=== PATIENT | male | born 1935 | race Caucasian/White ===

== ENCOUNTER → 2016-09-24 | Outpatient (CLI) | payer MEDICARE ==
[~2016-09-24] MED LIST: /LINE60TA PO; /TAMS4CA PO; ACET50TA PO; AVOD0.5C PO; DAPT50VL IV; FERR324T2 PO; HEPA100SY IVFLUSH; MULTTAB4 PO; PERC7.5T12 PO; SALI0.9I2 IJ; SLF IV; TOPR25TA PO; TYLE325T5 PO; ULTR50TA PO; VITA500C24 PO; WARF5VL PO
--- NOTE | 2016-09-26 15:04 | RADONC ---
RADIATION ONCOLOGY FOLLOWUP NOTE: DATE: 09/24/2016 CHART NUMBER: [id number] DIAGNOSIS: Prostate cancer. STAGE: IV ECOG PERFORMANCE STATUS: 0 Mr. Tolliver is a very pleasant 81-year-old white male with the diagnosis of metastatic adenocarcinoma of prostate who is presenting to us today for routine followup visit almost 4 years post completion of palliative radiation therapy to his right hip and femur. He is almost 6 years post completion of palliative radiation therapy to his thoracic spine. The patient presents today reporting that he is doing quite well with no complaints at this time related to his radiation therapy or disease. He has no hip, spine or other bone pain. REVIEW OF SYSTEMS: The patient's review of systems is noncontributory. He denies nausea, vomiting, fevers, chills, night sweats, diplopia, headaches, anxiety or depression, anorexia, weight loss, visual disturbances, chest pain, urinary or bowel difficulties, bone pain, or neurological problems. PHYSICAL EXAMINATION: The patient is a well-developed, well-nourished male in no acute distress. HEENT exam is normocephalic, atraumatic. Extraocular movements are intact. There is no palpable cervical, supraclavicular, infraclavicular, axillary, or inguinal lymphadenopathy present. Lungs are clear to auscultation and percussion. Heart has a regular rate and rhythm. Abdomen is benign with no hepatosplenomegaly, masses, or tenderness. Skeletal examination reveals no tenderness to pressure or percussion of the bony skeleton. Extremities reveal no clubbing, cyanosis, or edema. Neurologic exam is grossly intact, as is the remainder of the physical examination. ASSESSMENT: The patient is clinically stable at this time and will be seen by us again in 1 year for further followup. He will also continue to be followed by his other physicians as well. cc: MD Keith Hernandez MD Alejandro Rodriguez, MD Anna Shapiro, MD
== END ==
LOC: M ONCR 14:39
PROVIDERS: ATTEND Radiology Radiation Oncology
DX: C61 Malignant neoplasm of prostate (principal)

== ENCOUNTER 2016-11-14 14:23 | Emergency (ER) | payer MEDICARE ==
[~2016-11-14] VITALS: Ht 162.6 cm; Wt 68.1 kg
[2016-11-14 14:56] LABS: BASO % 0.2 % (0.0-1.0); EOS # 0.1 K/mm3 (0.0-0.50); EOS % 2.1 % (0.0-3.0); LARGE UNSTAINED CELL # 0.1 K/mm3 (0.0-0.4); LARGE UNSTAINED CELL % 1.8 % (0.0-4.0); LYMPH % 14.8 % (24.0-44.0); MEAN CORPUSCULAR HEMOGLOBIN 31.8 pg (27.0-33.0); MEAN CORPUSCULAR HGB CONC 33.3 g/dl (32.0-36.5); MEAN CORPUSCULAR VOLUME 95.7 fl (80.0-96.0); MONO # 0.4 K/mm3 (0.0-0.8); MONO % 7.1 % (0.0-5.0); NEUTROPHILS # 4.5 K/mm3 (1.8-7.7); NEUTROPHILS % 73.9 % (36.0-66.0); PLATELET COUNT, AUTOMATED 256 k/mm3 (150-450); RED CELL DISTRIBUTION WIDTH 13.8 % (11.5-14.5)
[2016-11-14 15:03] LABS: INR 1.1
[2016-11-14] MEDS ORDERED: FUROSEMIDE 40 MG/4 ML VIAL (J1940) IV ONE (15:15)
[2016-11-14 15:23] LABS: ANION GAP 9 MEQ/L (8-16); BLOOD UREA NITROGEN 34 MG/DL (7-18); CALCIUM LEVEL 8.3 MG/DL (8.8-10.2); CARBON DIOXIDE LEVEL 26 MEQ/L (21-32); CHLORIDE LEVEL 112 MEQ/L (98-107); CREATININE FOR GFR 1.01 MG/DL (0.70-1.30); GLOMERULAR FILTRATION RATE > 60.0 (>35); GLUCOSE, FASTING 111 MG/DL (83-110); POTASSIUM SERUM 4.1 MEQ/L (3.5-5.1); SODIUM LEVEL 147 MEQ/L (136-145)
--- NOTE | 2016-11-14 15:46 | REP ---
Chest x-ray: Two views. History: Chest pain. Comparison study: April 14, 2013. Findings: EKG monitoring electrodes overlie the chest. There is mild to moderate cardiomegaly. Bilateral pleural effusions are seen. Pulmonary vascular cephalized and somewhat congested. Fissural thickening is seen. Impression: CHF pattern with pulmonary vascular congestion, cardiomegaly, and bilateral effusions. Signed by Satya Perla MD 11/14/2016 04:59 P
[2016-11-14 17:48] VITALS: BP 111/86
--- NOTE | 2016-11-16 08:16 | ECGEPIP ---
Stationary ECG Study [facility] - ED Test Date: 2016-11-14 Pat Name: RAYMOND DAWOSN Department: Room: - Gender: M [employer] Worker: carlos manuel : 1935 Requested By: LONI Casillas Order Number: [id number] Reading MD: Jelly Razo Measurements Intervals [place] Rate: 101 P: 17 MS: 251 QRS: -78 QRSD: 143 T: 73 QT: 398 QTc: 518 Interpretive Statements SINUS TACHYCARDIA WITH FIRST DEGREE AV BLOCK WITH OCCASIONAL VENTRICULAR PREMATURE COMPLEXES RIGHT BUNDLE BRANCH BLOCK LEFT ANTERIOR FASCICULAR BLOCK DECREASED RATE 12/26/11 Electronically Signed On 11-16-2016 8:16:11 EDT by Jelly Razo
== END 2016-11-14 17:50 | disposition short-term general hospital (02) ==
LOC: M ED 14:23
DX: I35.0 Nonrheumatic aortic (valve) stenosis (principal); I50.9 Heart failure, unspecified; R94.31 Abnormal electrocardiogram [ECG] [EKG]; R60.0 Localized edema; M19.90 Unspecified osteoarthritis, unspecified site; Z85.51 Personal history of malignant neoplasm of bladder; Z85.46 Personal history of malignant neoplasm of prostate; Z87.891 Personal history of nicotine dependence; Z79.899 Other long term (current) drug therapy
CPT/HCPCS: 71020; 80048; 82550; 82553; 83880; 84484; 85025; 85610; 85730; 93005; 93041; 94760; 96374; 99285; J1940

== ENCOUNTER → 2017-10-14 | Outpatient (CLI) | payer MEDICARE | LOC: M ONCR 10:43 | DX: Z08 Encounter for follow-up examination after completed treatment for malignant neoplasm (principal); Z85.46 Personal history of malignant neoplasm of prostate; Z85.830 Personal history of malignant neoplasm of bone | CPT/HCPCS: G0463 ==

== ENCOUNTER → 2018-09-08 | Outpatient (CLI) | payer MEDICARE ==
[~2018-09-08] MED LIST changes: -/LINE60TA PO; -/TAMS4CA PO; -ACET50TA PO; +FLOM0.4C39 PO; +MAPA500T17 PO; +METO-1 PO; -TOPR25TA PO; +ZYVO100T PO
--- NOTE | 2018-09-10 06:55 | RADONC ---
RADIATION ONCOLOGY FOLLOW UP NOTE DATE: 09/08/2018 CHART # [id number] DIAGNOSIS: Prostate cancer. STAGE: IV. ECOG PERFORMANCE STATUS: 0. FOLLOWUP NOTE: It was my pleasure once again to see Mr. Tolliver who is a truly delightful 83-year-old white male with the diagnosis of metastatic adenocarcinoma of the prostate who is presenting to us today for routine followup visit 6 years post completion of palliative radiation therapy to his right hip and femur. It is now also 8 years post completion of palliative radiation therapy to his thoracic spine. The patient presents today once again reporting that he is having no problems. He has no new areas of pain or discomfort. His energy levels are good. He continues to work daily. He is quite active and having no symptoms or any hints whatsoever of having metastatic disease. REVIEW OF SYSTEMS: The patient's review of systems is noncontributory. Denies nausea, vomiting, fevers, chills, night sweats, diplopia, headaches, anxiety or depression, anorexia, weight loss, visual disturbances, chest pain, urinary or bowel difficulties, bone pain, or neurological problems. PHYSICAL EXAMINATION: The patient is a well-developed, well-nourished male in no acute distress. HEENT exam is normocephalic, atraumatic. Extraocular movements are intact. There is no palpable cervical, supraclavicular, infraclavicular, axillary, or inguinal lymphadenopathy present. Lungs are clear to auscultation and percussion. Heart has a regular rate and rhythm. Abdomen is benign with no hepatosplenomegaly, masses, or tenderness. Rectal examination reveals a normal anal sphincter tone. His prostate is smooth with no evidence of nodularity. Skeletal examination reveals no tenderness to pressure or percussion of the bony skeleton. Extremities reveal no clubbing, cyanosis, or edema. Neurologic exam is grossly intact, as is the remainder of the physical examination. ASSESSMENT: The patient is clinically stable at this time. He does have multiple other medical issues for which he is doing remarkably well indeed. Overall, I must say that this patient is doing spectacularly phenomenally well. I have set him up for routine followup in my office in 1 year. He has a copy of my cell phone number as well as my office number and I let the patient know that I am available to him at anytime if I could be of any assistance whatsoever or provide him any information. He is aware of what symptoms to look for to indicate when he should seek assistance as well. In the meantime, he will also continue his management with his other physicians. cc: MD Bebeto Parson MD Vojtech Slezka, MD
== END ==
LOC: M ONCR 09:20
PROVIDERS: ATTEND Radiology Radiation Oncology
DX: Z85.46 Personal history of malignant neoplasm of prostate (principal); Z92.3 Personal history of irradiation

== ENCOUNTER → 2019-09-07 | Outpatient (CLI) | payer MEDICARE ==
--- NOTE | 2019-09-08 16:14 | RADONC ---
RADIATION ONCOLOGY FOLLOWUP NOTE DATE: 09/07/2019 This is a telemedicine visit. The patient was informed of the risks including security breech, technological failure, inability to perform a comprehensive physical exam which could delay or prevent an accurate diagnosis, and potential complications from treatment decisions rendered over a telemedicine platform. The patient understands and consented to the use of telehealth services phone only. CHART NUMBER: [id number]. DIAGNOSIS: Prostate cancer. STAGE: IV. ECOG PERFORMANCE STATUS 0 FOLLOWUP NOTE: Mr. Tolliver is a remarkable 84-year-old white male with the diagnosis of metastatic adenocarcinoma of the prostate who is presenting to me once again today for routine followup visit 7 years post completion of palliative radiation therapy to his right hip and femur. He is now 9 years post completion of palliative radiation therapy to his thoracic spine. Once again, the patient is working diligently. He is doing exceedingly well. He reports no problems or significant pain. His energy levels are good. He reports that his works takes him sometimes 400 miles away on a daily basis. He feels remarkably well. REVIEW OF SYSTEMS: The patient's review of systems is basically noncontributory. Denies nausea, vomiting, fevers, chills, night sweats, diplopia, headaches, anxiety or depression, anorexia, weight loss, visual disturbances, chest pain, urinary or bowel difficulties, bone pain, or neurological problems. PHYSICAL EXAMINATION: Physical exam was deferred as per COVID-19 precautions. ASSESSMENT: Once again, the patient is stable at this point. I have explained to him that I will be retiring and replaced by a new physician Dr. Nelson. I have tentatively set him up for a 1-year followup visit with Dr. Nelson so that he remains in the system. In addition, I have given him my cell phone number and he has the number here. He has been made aware once again should he develop any symptoms such as increasing bone pain he can contact me or the center and be scheduled immediately for evaluation scanning and subsequent radiation if indicated. In the meantime though, the patient is doing amazingly well without intervention and Dr. Nelson will continue to follow in the future.
== END ==
LOC: M ONCR 08:53
PROVIDERS: ATTEND Radiology Radiation Oncology
DX: C61 Malignant neoplasm of prostate (principal)

== ENCOUNTER → 2020-09-19 | Outpatient (CLI) | payer MEDICARE ==
--- NOTE | 2020-09-19 11:23 | RADONC ---
Radiation Oncology Hx/FUP Radiation Oncology Hx/FUP Date of Service: Sep 19, 2020 Pt Identifier Sukumar Tolliver is a 85 year old male seen for a followup visit today at the department of radiation oncology for a history of localized prostate cancer. He completed initial therapy for prostate cancer in 2007. He received 77.4 Gy in 43 fractions from 04/29/07-06/28/2007. He later was though to have progressed in bone in 2010 and received 35 Gy in 14 fractions to the T-L spine 02/24/11-03/13/11. He then by report developed another lesion in the right femur in 2012 and received 25 Gy in 10 fractions from 11/18/12-12/02/12. Imaging of both these bony sites contemporaneous with treatment had no evidence of cancer. The was no biopsies done to confirm metastases. The right hip was later replaced and pathology revealed no cancer, instead degenerative arthritic changes. 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 Rios @ [facility] in 2012, received HBO treatment for the RT cystitis also in [place], it later resolved. He has remained without evidence of recurrent prostate cancer since then with a persistent low PSA. Diagnosis/Treatment History Oncologic History As above Most recent imagin07/06/15 MRI L spine Negative for metastatic lesions Positive for disc bulge L4-5 L5-S1 Recent data: 09/12/20 PSA 0.77 ng/ml Interval History Feels well. Has back pain from arthritis. 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 No additional sites of bone pain. No LISA, or cough. He has normal bowel and bladder habits without bleeding or LUTs. His appetite and weight are stable. Takes flomax, no problems with the medication. Current Therapy Surveillance Stage Prostate cancer localized, no evidence of confirmed metastatic disease Social History: Non-smoker Non-drinker Allergies / Meds Allergies: Coded Allergies: MS - No Known Drug Allergy (Verified Allergy, 06/22/12) Home Meds Reported Medications Acetaminophen (TYLENOL) 500 Mg Tab, 650 MG PO Q4HP PRN for TEMP, TAB 04/28/13 Tamsulosin HCl (FLOMAX) 0.4 Mg Cap, 0.4 MG PO DAILY 12/24/11 Multivitamin (Multivitamins) 1 Each Tab, 1 TAB PO DAILY 12/24/11 Review of Systems Review of Systems Constitutional: Denies: Fatigue, Weight Loss Eyes: Reports: Vision change (Blind OS); Denies: Pain HEENT: Denies: Head Aches Skin: Denies: Rash Pulmonary: Denies: Dyspnea, Cough Cardiovascular: Denies: Chest Pain, Palpitations Gastrointestinal: Denies: Abdominal Pain, Diarrhea, Hematochezia Genitourinary: Denies: Dysuria, Frequency, Incontinence, Hematuria Musculoskeletal: Reports: Back pain; Denies: Neck pain, Leg pain Neurological: Denies: Weakness, Numbness Psych: Reports: Mood Normal Physical Examination Vital Signs Wt 147 lbs T 97 P 66 RR 18 BP 144/74 O2 90% Pain 0 Fatigue 0 General Exam: Positive: Alert, Cooperative, No Acute Distress Eye Exam: Positive: PERRLA, EOMI ENT EXAM: Positive: Atraumatic Neck Exam: Positive: Supple Chest Exam: Positive: Clear to auscultation, Normal air movement Heart Exam: Positive: Rate Normal Abdomen Exam: Positive: Normal bowel sounds, Soft Male Exam: Positive: Normal Prostate Extremity Exam: Negative: Edema Skin Exam: Positive: Nl turgor and temperature Neuro Exam: Positive: Normal Gait, Normal Speech, Cranial Nerves 3-12 NL Psych Exam: Positive: Mental status NL Diagnostic and Laboratory Diagnostic Review Radiologic images, relevant labs and pathology reports were personally reviewed and discussed with Mr. Tolliver. Assessment and Plan Impression Assessment Mr. Tolliver is a 85 year old male with a history of localized prostate cancer. He completed initial therapy for prostate cancer in 2007. He received 77.4 Gy in 43 fractions from 04/29/07-06/28/2007. He later was though to have progressed in bone in 2010 and received 35 Gy in 14 fractions to the T-L spine 02/24/11- 03/13/11. He then by report developed another lesion in the right femur in 2012 and received 25 Gy in 10 fractions from 11/18/12-12/02/12. Imaging of both these bony sites contemporaneous with treatment had no evidence of cancer. The was no biopsies done to confirm metastases. The right hip was later replaced and pathology revealed no cancer, instead degenerative arthritic changes. 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 Rios @ [facility] in 2012, received HBO treatment for the RT cystitis also in [place], it later resolved. He has remained without evidence of recurrent prostate cancer since then with a persistent low PSA. He is doing well without evidence of biochemical recurrence. I explained that he is unlikely to experience remission at this juncture, now 14 years removed from primary treatment. He has had late RT cystitis which is currently in remission as well. We can continue annual follow up with PSA. Performance Status ECOG 1 Plan Follow up in 12 months with PSA Mr. Tolliver was encouraged to call with questions or concerns in the interim period. Billing Statement Total time of [34] minutes was spent preparing for the visit [3], obtaining HPI [10], examining the patient [1], reviewing diagnostic tests [5], discussing management options [4], coordinating care [1], and writing this note [10]. SIERRA MARIE MD Sep 19, 2020 11:22
== END ==
LOC: M ONCR 09:27
PROVIDERS: ATTEND General Practice
DX: C61 Malignant neoplasm of prostate (principal)

== ENCOUNTER → 2021-09-18 | Outpatient (CLI) | payer MEDICARE | LOC: M ONCR 09:40 | PROVIDERS: ATTEND General Practice | DX: Z08 Encounter for follow-up examination after completed treatment for malignant neoplasm (principal); Z85.46 Personal history of malignant neoplasm of prostate; Z92.3 Personal history of irradiation ==

== ENCOUNTER 2022-09-06 21:57 | Observation (INO) | payer MEDICARE ==
[~2022-09-06] VITALS: Ht 162.6 cm; Wt 65.9 kg
[2022-09-06 23:15] LABS: BASO % 0.5 % (0.0-1.0); EOS # 0.3 10^3/uL (0.0-0.5); EOS % 4.2 % (0.0-3.0); HEMATOCRIT 36.1 % (42.0-52.0); HEMOGLOBIN 11.9 g/dl (13.5-17.5); LYMPH # 1.5 10^3/uL (1.5-5.0); LYMPH % 24.6 % (24.0-44.0); MEAN CORPUSCULAR HEMOGLOBIN 31.3 pg (27.0-33.0); MONO # 0.7 10^3/uL (0.0-0.8); MONO % 10.7 % (2.0-8.0); NEUTROPHILS # 3.7 10^3/uL (1.5-8.5); NEUTROPHILS % 59.7 % (36.0-66.0); PLATELET COUNT, AUTOMATED 195 10^3/uL (150-450); WHITE BLOOD COUNT 6.3 10^3/uL (4.0-10.0)
[2022-09-06 23:38] LABS: LIPASE 34 U/L (12-53)
[2022-09-06 23:40] LABS: ALBUMIN 4.1 G/DL (3.2-5.2); ALKALINE PHOSPHATASE 76 U/L (46-116); ALT/SGPT 16 U/L (7.0-40); AST/SGOT 16 U/L (<34); BILIRUBIN,DIRECT 0.4 MG/DL (<0.4); BILIRUBIN,TOTAL 1.4 MG/DL (0.3-1.2); BLOOD UREA NITROGEN 24 MG/DL (9-23); CALCIUM LEVEL 9.7 MG/DL (8.3-10.6); CARBON DIOXIDE LEVEL 31 MMOL/L (20-31); CHLORIDE LEVEL 102 MMOL/L (98-107); CREATININE FOR GFR 0.93 MG/DL (0.70-1.30); GLOMERULAR FILTRATION RATE > 60.0 (>35); GLUCOSE, FASTING 130 MG/DL (74-106); POTASSIUM SERUM 4.6 MMOL/L (3.5-5.1); SODIUM LEVEL 139 MMOL/L (136-145); TOTAL PROTEIN 6.7 G/DL (5.7-8.2)
[2022-09-07] MEDS ORDERED: LIDOCAINE 2% 5ML JELLY UROJET As Ordered ONE (03:18)
[2022-09-07] MEDS ORDERED: LIDOCAINE 2% 5ML JELLY UROJET TOP ONE (03:20)
[2022-09-07 04:32] LABS: INR 0.95; PARTIAL THROMBOPLASTIN TIME 30.1 SECONDS (24.8-34.2); PROTHROMBIN TIME 12.9 SECONDS (12.5-14.5)
[2022-09-07] MEDS ORDERED: CARV25TA PO (06:19)
[2022-09-07] MEDS ORDERED: CIPR500T39 PO (06:19)
[2022-09-07] MEDS ORDERED: LISI2.5T9 PO (06:19)
[2022-09-07] MEDS ORDERED: THERTAB52 PO (06:19)
[2022-09-07] MEDS ORDERED: TAMS1CAP17 PO (06:19)
[2022-09-07] MEDS ORDERED: HOME MED LIST COMPLETE! XX SCH (06:20)
[2022-09-07 07:00] LABS: RSV AMPLIFICATION NEGATIVE (NEGATIVE)
[2022-09-07 08:22] LABS: HEMATOCRIT 34.8 % (42.0-52.0); HEMOGLOBIN 11.8 g/dl (13.5-17.5); MEAN CORPUSCULAR HEMOGLOBIN 31.8 pg (27.0-33.0); MEAN CORPUSCULAR HGB CONC 33.9 g/dl (32.0-36.5); MEAN CORPUSCULAR VOLUME 93.8 fl (80.0-96.0); PLATELET COUNT, AUTOMATED 184 10^3/uL (150-450); RED BLOOD COUNT 3.71 10^6/uL (4.30-6.10); WHITE BLOOD COUNT 7.4 10^3/uL (4.0-10.0)
[2022-09-07 08:54] LABS: BLOOD UREA NITROGEN 21 MG/DL (9-23); CALCIUM LEVEL 9.4 MG/DL (8.3-10.6); CARBON DIOXIDE LEVEL 30 MMOL/L (20-31); CHLORIDE LEVEL 103 MMOL/L (98-107); CREATININE FOR GFR 0.81 MG/DL (0.70-1.30); GLOMERULAR FILTRATION RATE > 60.0 (>35); GLUCOSE, FASTING 110 MG/DL (74-106); POTASSIUM SERUM 4.1 MMOL/L (3.5-5.1); SODIUM LEVEL 141 MMOL/L (136-145)
[2022-09-07 13:55] VITALS: BP 166/72; TEMP 98.2; O2SAT 92
== END 2022-09-07 14:45 | disposition home or self-care (01) ==
LOC: M ED 21:57 → M ED INP 21:58 → ENRESERV 09-07 13:30
PROVIDERS: ADMIT Internal Medicine; ATTEND Internal Medicine
DX: R31.9 Hematuria, unspecified (principal); R33.9 Retention of urine, unspecified; Z85.46 Personal history of malignant neoplasm of prostate; Z92.3 Personal history of irradiation; Z85.51 Personal history of malignant neoplasm of bladder; H33.052 Total retinal detachment, left eye; H54.40 Blindness, one eye, unspecified eye; I38 Endocarditis, valve unspecified; G47.33 Obstructive sleep apnea (adult) (pediatric); E78.5 Hyperlipidemia, unspecified; Z95.2 Presence of prosthetic heart valve; Z79.899 Other long term (current) drug therapy; Z79.2 Long term (current) use of antibiotics; Z95.0 Presence of cardiac pacemaker; Z87.891 Personal history of nicotine dependence
CPT/HCPCS: 51702; 80048; 80076; 81000; 81015; 83690; 85025; 85027; 85610; 85730; 87086; 87631; 93005; 97161; 99285; G0378

== ENCOUNTER → 2022-09-18 | Outpatient (CLI) | payer MEDICARE ==
[~2022-09-18] MED LIST changes: +CARV25TA PO; +CIPR500T39 PO; +LISI2.5T9 PO; +TAMS1CAP17 PO; +THERTAB52 PO
== END ==
LOC: M ONCR 10:21
PROVIDERS: ATTEND General Practice
DX: C61 Malignant neoplasm of prostate (principal); Z85.830 Personal history of malignant neoplasm of bone; Z71.2 Person consulting for explanation of examination or test findings; Z79.899 Other long term (current) drug therapy; Z92.3 Personal history of irradiation; Z96.0 Presence of urogenital implants; Z96.641 Presence of right artificial hip joint

== ENCOUNTER → 2022-10-15 | Outpatient (REF) | payer MEDICARE | LOC: M SMT 10:03 | PROVIDERS: ATTEND Urology | DX: N35.919 Unspecified urethral stricture, male, unspecified site (principal); Z79.899 Other long term (current) drug therapy ==

== ENCOUNTER 2022-11-16 09:34 | Emergency (ER) | payer MEDICARE ==
[~2022-11-16] VITALS: Ht 162.6 cm; Wt 65.0 kg
[2022-11-16 09:34] VITALS: TEMP 96.3
[~2022-11-16 09:34] MED LIST changes: +SERT50TA29 PO
[2022-11-16 13:20] VITALS: BP 133/60; O2SAT 96
== END 2022-11-16 13:39 | disposition home or self-care (01) ==
LOC: M ED 09:34
DX: T83.098A Other mechanical complication of other urinary catheter, initial encounter (principal); I10 Essential (primary) hypertension; C61 Malignant neoplasm of prostate; G47.33 Obstructive sleep apnea (adult) (pediatric); M54.9 Dorsalgia, unspecified; Z95.0 Presence of cardiac pacemaker; Z87.891 Personal history of nicotine dependence; Z79.899 Other long term (current) drug therapy

== ENCOUNTER 2022-11-27 06:44 | Day surgery (SDC) | payer MEDICARE ==
[~2022-11-27] VITALS: Ht 162.6 cm; Wt 64.4 kg
[~2022-11-27 06:44] MED LIST changes: +ceFAZolin SOD 2 GM in IV 1 EA IV ONE
[2022-11-27] MEDS ORDERED: LR 1,000 ML IV SCH ×2 (07:05→09:10)
[2022-11-27] MEDS ORDERED: fentaNYL 100 MCG/2 ML INJECTION As Ordered ONE (08:47)
[2022-11-27] MEDS ORDERED: SUGAMMADEX SODIUM 500 MG/5 ML VIAL (BRIDION) As Ordered ONE (08:47)
[2022-11-27] MEDS ORDERED: propofoL 200 MG/20 ML VIAL As Ordered ONE (08:47)
[2022-11-27] MEDS ORDERED: ROCURONIUM BROMIDE 50MG/5ML VIAL As Ordered ONE (08:47)
[2022-11-27] MEDS ORDERED: LIDOCAINE 2% 100MG/5ML SDV (FOR ANES.) As Ordered ONE (08:47)
[2022-11-27] MEDS ORDERED: ONDANSETRON 4MG 2ML VIAL As Ordered ONE (08:47)
[2022-11-27] MEDS ORDERED: ACETAMINOPHEN 1000MG 100ML IV BAG As Ordered ONE (08:48)
[2022-11-27] MEDS ORDERED: ePHEDrine SULFATE 25 MG/5 ML(5MG/ML) SYRINGE As Ordered ONE (08:49)
[2022-11-27] MEDS ORDERED: MACR100C43 PO (09:09)
[2022-11-27] MEDS ORDERED: ONDANSETRON 4MG 2ML VIAL IV PRN (09:10)
[2022-11-27] MEDS ORDERED: HYDROMORPHONE HCL 0.5 MG/ 0.5 ML SYRINGE IV PRN (09:10)
[2022-11-27] MEDS ORDERED: fentaNYL 100 MCG/2 ML INJECTION IV PRN (09:10)
[2022-11-27] MEDS ORDERED: oxyCODONE 5MG TAB PO PRN (09:10)
[2022-11-27 10:55] VITALS: BP 141/70; TEMP 97.2; O2SAT 97
== END 2022-11-27 10:58 | disposition home or self-care (01) ==
LOC: M SDC 06:44
PROVIDERS: ATTEND Urology
DX: N35.919 Unspecified urethral stricture, male, unspecified site (principal); N30.90 Cystitis, unspecified without hematuria; R31.0 Gross hematuria; Z85.46 Personal history of malignant neoplasm of prostate; Z85.51 Personal history of malignant neoplasm of bladder; I25.10 Atherosclerotic heart disease of native coronary artery without angina pectoris; I05.9 Rheumatic mitral valve disease, unspecified; Z95.0 Presence of cardiac pacemaker; G47.30 Sleep apnea, unspecified; Z79.899 Other long term (current) drug therapy
CPT/HCPCS: 52276; J0690; J1100; J2405; J3010

== ENCOUNTER 2023-08-18 12:02 | Observation (INO) | payer MEDICARE ==
[~2023-08-18] VITALS: Ht 162.6 cm; Wt 65.0 kg
[~2023-08-18 12:02] MED LIST changes: +MACR100C43 PO; -ceFAZolin SOD 2 GM in IV 1 EA IV ONE
[2023-08-18 13:54] LABS: VENOUS HCO3 25.5 MMOL/L (23.0-27.0); VENOUS O2 SATURATION 78.4 % (60.0-80.0); VENOUS PARTIAL PRESSURE CO2 45.3 mmHg (38.0-50.0); VENOUS PARTIAL PRESSURE O2 45.7 mmHg (30.0-50.0); VENOUS PH 7.369 UNITS (7.330-7.430); VENOUS TOTAL CO2 26.9 MMOL/L (24.0-28.0)
[2023-08-18 14:00] LABS: BASO % 0.6 % (0.0-1.0); EOS # 0.2 10^3/uL (0.0-0.5); EOS % 4.1 % (0.0-3.0); HEMATOCRIT 34.9 % (42.0-52.0); HEMOGLOBIN 11.4 g/dl (13.5-17.5); LYMPH % 21.4 % (24.0-44.0); MEAN CORPUSCULAR HEMOGLOBIN 31.5 pg (27.0-33.0); MEAN CORPUSCULAR HGB CONC 32.7 g/dl (32.0-36.5); MEAN CORPUSCULAR VOLUME 96.4 fl (80.0-96.0); MONO # 0.5 10^3/uL (0.0-0.8); MONO % 11.7 % (2.0-8.0); NEUTROPHILS # 2.9 10^3/uL (1.5-8.5); PLATELET COUNT, AUTOMATED 173 10^3/uL (150-450); RED BLOOD COUNT 3.62 10^6/uL (4.30-6.10); WHITE BLOOD COUNT 4.6 10^3/uL (4.0-10.0)
[2023-08-18 14:22] LABS: CK-MB VALUE MASS 3.6 NG/ML (<3.6)
[2023-08-18 14:25] LABS: ALBUMIN 3.3 G/DL (3.2-5.2); BILIRUBIN,DIRECT 0.4 MG/DL (<0.4); BILIRUBIN,TOTAL 1.1 MG/DL (0.3-1.2); MB/CK RELATIVE INDEX 2.3 (< OR =4); THYROXINE (T4) 10.4 UG/DL (4.5-10.9); TOTAL PROTEIN 5.9 G/DL (5.7-8.2)
[2023-08-18 14:26] LABS: THYROID STIMULATING HORMONE 0.548 uIU/ML (0.55-4.78)
[2023-08-18 14:38] LABS: RSV AMPLIFICATION NEGATIVE (NEGATIVE)
[2023-08-18 15:04] LABS: INR 1.21; PROTHROMBIN TIME 14.9 SECONDS (12.5-14.5)
[2023-08-18 15:25] LABS: CK-MB VALUE MASS 3.2 NG/ML (<3.6)
[2023-08-18 15:31] LABS: MB/CK RELATIVE INDEX 2.03 (< OR =4)
[2023-08-18] MEDS ORDERED: ISOVUE-370 76% 100ML VIAL As Ordered ONE (17:27)
[2023-08-18] MEDS ORDERED: ASPI81CH33 PO (17:54)
[2023-08-18] MEDS ORDERED: HOME MED LIST COMPLETE! XX SCH (17:55)
[2023-08-18] MEDS: FUROSEMIDE 40MG/4ML VIAL IV SCH (18:40)
[2023-08-18] MEDS: CARVedilol 12.5 MG TAB PO SCH (22:06)
[2023-08-18 23:44] LABS: CK-MB VALUE MASS 2.9 NG/ML (<3.6)
[2023-08-18 23:45] LABS: MB/CK RELATIVE INDEX 2.04 (< OR =4)
[2023-08-19 01:35] VITALS: BP 128/63; TEMP 97; O2SAT 92
[2023-08-19 05:00] VITALS: BP 118/56; TEMP 97.5; O2SAT 92
[2023-08-19 06:43] LABS: HEMATOCRIT 37.9 % (42.0-52.0); HEMOGLOBIN 12.3 g/dl (13.5-17.5); MEAN CORPUSCULAR HEMOGLOBIN 31.1 pg (27.0-33.0); MEAN CORPUSCULAR HGB CONC 32.5 g/dl (32.0-36.5); MEAN CORPUSCULAR VOLUME 95.7 fl (80.0-96.0); PLATELET COUNT, AUTOMATED 190 10^3/uL (150-450); RED BLOOD COUNT 3.96 10^6/uL (4.30-6.10); WHITE BLOOD COUNT 5.6 10^3/uL (4.0-10.0)
[2023-08-19 07:07] LABS: CPK CREATINE PHOSPHOKINASE 138 U/L (46-171); MB/CK RELATIVE INDEX 2.17 (< OR =4)
[2023-08-19 07:08] LABS: BLOOD UREA NITROGEN 22 MG/DL (9-23); CALCIUM LEVEL 8.7 MG/DL (8.3-10.6); CARBON DIOXIDE LEVEL 32 MMOL/L (20-31); CHLORIDE LEVEL 105 MMOL/L (98-107); CREATININE FOR GFR 1.01 MG/DL (0.70-1.30); GLOMERULAR FILTRATION RATE > 60.0 (>35); GLUCOSE, FASTING 101 MG/DL (74-106); POTASSIUM SERUM 4.2 MMOL/L (3.5-5.1); SODIUM LEVEL 141 MMOL/L (136-145)
[2023-08-19 07:40] VITALS: BP 126/65; TEMP 97.4; O2SAT 94
[2023-08-19] MEDS: ENOXAPARIN 40MG/0.4ML SYRINGE (J1650 PER 10MG) SC SCH (08:23)
[2023-08-19 08:24] VITALS: BP 126/65
[2023-08-19] MEDS: LISINOPRIL *2.5 MG* TAB PO SCH (08:24)
[2023-08-19] MEDS: FUROSEMIDE 40MG/4ML VIAL IV SCH (08:24)
[2023-08-19] MEDS ORDERED: FURO20TA2 PO (10:28)
== END 2023-08-19 13:55 | disposition home or self-care (01) ==
LOC: M ED 12:02 → M ED INP 12:03 → M PCU 08-19 01:32
PROVIDERS: ADMIT Family Medicine; ATTEND Family Medicine
DX: I50.9 Heart failure, unspecified (principal); I35.1 Nonrheumatic aortic (valve) insufficiency; Z95.2 Presence of prosthetic heart valve; R06.09 Other forms of dyspnea; R79.89 Other specified abnormal findings of blood chemistry; I42.0 Dilated cardiomyopathy; J90 Pleural effusion, not elsewhere classified; R18.8 Other ascites; Z85.46 Personal history of malignant neoplasm of prostate; Z92.3 Personal history of irradiation; Z85.51 Personal history of malignant neoplasm of bladder; Z95.0 Presence of cardiac pacemaker; N30.40 Irradiation cystitis without hematuria; H33.002 Unspecified retinal detachment with retinal break, left eye; G47.33 Obstructive sleep apnea (adult) (pediatric); Z96.641 Presence of right artificial hip joint; Z80.3 Family history of malignant neoplasm of breast; Z82.49 Family history of ischemic heart disease and other diseases of the circulatory system; Z79.899 Other long term (current) drug therapy
CPT/HCPCS: 36415; 71045; 71275; 80047; 80048; 80076; 82550; 82553; 82803; 83605; 83880; 84436; 84443; 84484; 85025; 85027; 85610; 87040; 87631; 93005; 93041; 94760; 96372; 96374; 96376; 99285; G0378; J1650; J1940; Q9967

== ENCOUNTER → 2023-09-29 | Outpatient (CLI) | payer MEDICARE ==
[~2023-09-29] MED LIST changes: +ASPI81CH33 PO; +FURO20TA2 PO
== END ==
LOC: M ONCR 12:35
PROVIDERS: ATTEND General Practice
DX: Z08 Encounter for follow-up examination after completed treatment for malignant neoplasm (principal); I35.0 Nonrheumatic aortic (valve) stenosis; I50.9 Heart failure, unspecified; Z85.46 Personal history of malignant neoplasm of prostate; Z79.82 Long term (current) use of aspirin; Z79.899 Other long term (current) drug therapy; Z85.51 Personal history of malignant neoplasm of bladder; Z92.3 Personal history of irradiation; Z96.641 Presence of right artificial hip joint

== ENCOUNTER 2023-11-17 13:38 | Observation (INO) | payer MEDICARE ==
[~2023-11-17] VITALS: Ht 162.6 cm; Wt 65.1 kg
[2023-11-17] MEDS ORDERED: FURO40TA2 (13:50)
[2023-11-17] MEDS ORDERED: ADVIL (13:53)
[2023-11-17 14:29] LABS: BASO % 0.4 % (0.0-1.0); EOS # 0.3 10^3/uL (0.0-0.5); EOS % 5.5 % (0.0-3.0); HEMATOCRIT 32.8 % (42.0-52.0); HEMOGLOBIN 10.2 g/dl (13.5-17.5); LYMPH # 0.8 10^3/uL (1.5-5.0); LYMPH % 13.4 % (24.0-44.0); MEAN CORPUSCULAR HEMOGLOBIN 29.2 pg (27.0-33.0); MEAN CORPUSCULAR HGB CONC 31.1 g/dl (32.0-36.5); MONO # 0.5 10^3/uL (0.0-0.8); MONO % 8.4 % (2.0-8.0); NEUTROPHILS % 72.1 % (36.0-66.0); PLATELET COUNT, AUTOMATED 181 10^3/uL (150-450); RED BLOOD COUNT 3.49 10^6/uL (4.30-6.10); WHITE BLOOD COUNT 5.6 10^3/uL (4.0-10.0)
[2023-11-17 14:48] LABS: CK-MB VALUE MASS 1.6 NG/ML (<3.6); CPK CREATINE PHOSPHOKINASE 116 U/L (46-171); MB/CK RELATIVE INDEX 1.37 (< OR =4)
[2023-11-17 14:49] LABS: ALBUMIN 3.4 G/DL (3.2-5.2); ALKALINE PHOSPHATASE 91 U/L (46-116); ALT/SGPT 27 U/L (7.0-40); AST/SGOT 18 U/L (<34); BILIRUBIN,DIRECT 0.5 MG/DL (<0.4); BILIRUBIN,TOTAL 1.3 MG/DL (0.3-1.2); BLOOD UREA NITROGEN 48 MG/DL (9-23); CALCIUM LEVEL 8.9 MG/DL (8.3-10.6); CARBON DIOXIDE LEVEL 31 MMOL/L (20-31); CHLORIDE LEVEL 106 MMOL/L (98-107); CREATININE FOR GFR 1.01 MG/DL (0.70-1.30); GLOMERULAR FILTRATION RATE > 60.0 (>35); GLUCOSE, FASTING 204 MG/DL (74-106); POTASSIUM SERUM 4.2 MMOL/L (3.5-5.1); SODIUM LEVEL 144 MMOL/L (136-145); TOTAL PROTEIN 6.1 G/DL (5.7-8.2)
[2023-11-17] MEDS: FUROSEMIDE 40MG/4ML VIAL IV ONE (17:11)
[2023-11-17] MEDS: MIDODRINE 5 MG TAB PO ONE (17:45)
[2023-11-17] MEDS: ENOXAPARIN 30MG/0.3ML SYRINGE (J1650 PER 10MG) SC ONE (17:45)
[2023-11-17] MEDS ORDERED: FURO20TA2 PO (18:02)
[2023-11-17] MEDS ORDERED: HOME MED LIST COMPLETE! XX SCH (18:05)
[2023-11-17] MEDS ORDERED: LEVALBUTEROL 1.25MG 0.5ML CONCENTRATE NEB INH PRN (18:40)
[2023-11-17 19:40] LABS: BLOOD UREA NITROGEN 47 MG/DL (9-23); CALCIUM LEVEL 9.1 MG/DL (8.3-10.6); CARBON DIOXIDE LEVEL 30 MMOL/L (20-31); CHLORIDE LEVEL 105 MMOL/L (98-107); CREATININE FOR GFR 0.94 MG/DL (0.70-1.30); GLOMERULAR FILTRATION RATE > 60.0 (>35); GLUCOSE, FASTING 118 MG/DL (74-106); POTASSIUM SERUM 4.1 MMOL/L (3.5-5.1); SODIUM LEVEL 143 MMOL/L (136-145)
[2023-11-17] MEDS: SERTRALINE HCL 50 MG TAB PO SCH (20:35)
[2023-11-17] MEDS: DOXYCYCLINE HYCLATE 100MG TABLET PO SCH (20:36)
[2023-11-17] MEDS: CARVedilol 12.5 MG TAB PO SCH (20:36)
[2023-11-17] MEDS: cefTRIAXone SOD 1 GM in D5W MINI-BAG PLUS 50 ML IV SCH (20:37)
[2023-11-17 22:20] LABS: BLOOD UREA NITROGEN 47 MG/DL (9-23); CALCIUM LEVEL 8.7 MG/DL (8.3-10.6); CARBON DIOXIDE LEVEL 32 MMOL/L (20-31); CHLORIDE LEVEL 104 MMOL/L (98-107); CK-MB VALUE MASS 1.3 NG/ML (<3.6); CPK CREATINE PHOSPHOKINASE 114 U/L (46-171); CREATININE FOR GFR 1.04 MG/DL (0.70-1.30); GLOMERULAR FILTRATION RATE > 60.0 (>35); GLUCOSE, FASTING 123 MG/DL (74-106); MB/CK RELATIVE INDEX 1.14 (< OR =4); POTASSIUM SERUM 3.9 MMOL/L (3.5-5.1); SODIUM LEVEL 140 MMOL/L (136-145)
[2023-11-17 23:41] VITALS: BP 116/60; TEMP 97.9; O2SAT 93
[2023-11-18] VITALS: BP 104/66; TEMP 97.9; O2SAT 92
[2023-11-18] MEDS: FUROSEMIDE injection 250 MG in D5W 225 ML IV SCH
[2023-11-18 04:00] VITALS: BP 123/67; TEMP 98.1; O2SAT 90
[2023-11-18] MEDS ORDERED: BACI1CAP PO (06:18)
[2023-11-18] MEDS ORDERED: DOXY100T PO (06:18)
[2023-11-18] MEDS ORDERED: CEFD300CAP PO (06:18)
[2023-11-18 06:36] LABS: HEMATOCRIT 32.2 % (42.0-52.0); HEMOGLOBIN 10.1 g/dl (13.5-17.5); MEAN CORPUSCULAR HEMOGLOBIN 28.8 pg (27.0-33.0); MEAN CORPUSCULAR HGB CONC 31.4 g/dl (32.0-36.5); MEAN CORPUSCULAR VOLUME 91.7 fl (80.0-96.0); PLATELET COUNT, AUTOMATED 174 10^3/uL (150-450); RED BLOOD COUNT 3.51 10^6/uL (4.30-6.10); WHITE BLOOD COUNT 6.6 10^3/uL (4.0-10.0)
[2023-11-18 06:55] LABS: CK-MB VALUE MASS 2.5 NG/ML (<3.6)
[2023-11-18 06:56] LABS: BLOOD UREA NITROGEN 47 MG/DL (9-23); CALCIUM LEVEL 8.4 MG/DL (8.3-10.6); CARBON DIOXIDE LEVEL 29 MMOL/L (20-31); CHLORIDE LEVEL 104 MMOL/L (98-107); CREATININE FOR GFR 0.98 MG/DL (0.70-1.30); GLOMERULAR FILTRATION RATE > 60.0 (>35); GLUCOSE, FASTING 127 MG/DL (74-106); MAGNESIUM LEVEL 2.2 MG/DL (1.8-2.4); MB/CK RELATIVE INDEX 2.31 (< OR =4); POTASSIUM SERUM 3.9 MMOL/L (3.5-5.1); SODIUM LEVEL 139 MMOL/L (136-145)
[2023-11-18 07:57] VITALS: BP 109/57; TEMP 97.2; O2SAT 90
[2023-11-18] MEDS ORDERED: SELF1KIT MC (08:16)
[2023-11-18 09:00] VITALS: BP 109/57
[2023-11-18] MEDS: ENOXAPARIN 30MG/0.3ML SYRINGE (J1650 PER 10MG) SC SCH (09:34)
[2023-11-18] MEDS: MULTIVITAMINS/MINERALS THERAP 1 TAB PO SCH (09:35)
[2023-11-18] MEDS: POTASSIUM CHLORIDE 10MEQ SR TABLET PO ONE (09:35)
[2023-11-18] MEDS: ASPIRIN 81MG CHEW TABLET PO SCH (09:36)
== END 2023-11-18 11:32 | disposition home or self-care (01) ==
LOC: M ED 13:38 → INTOOBSV 17:41 → M ED INP 17:41 → M PCU 23:33
PROVIDERS: ADMIT General Practice; ATTEND General Practice
DX: J18.9 Pneumonia, unspecified organism (principal); I47.10 Supraventricular tachycardia, unspecified; I50.23 Acute on chronic systolic (congestive) heart failure; J90 Pleural effusion, not elsewhere classified; R06.02 Shortness of breath; R53.83 Other fatigue; Z85.46 Personal history of malignant neoplasm of prostate; Z92.3 Personal history of irradiation; Z85.51 Personal history of malignant neoplasm of bladder; E78.5 Hyperlipidemia, unspecified; F32.A Depression, unspecified; I73.9 Peripheral vascular disease, unspecified; I65.29 Occlusion and stenosis of unspecified carotid artery; G47.30 Sleep apnea, unspecified; I38 Endocarditis, valve unspecified; Z95.0 Presence of cardiac pacemaker; Z98.41 Cataract extraction status, right eye; Z98.42 Cataract extraction status, left eye; Z95.2 Presence of prosthetic heart valve; Z95.828 Presence of other vascular implants and grafts; Z90.89 Acquired absence of other organs; Z96.641 Presence of right artificial hip joint; Z82.49 Family history of ischemic heart disease and other diseases of the circulatory system; Z80.3 Family history of malignant neoplasm of breast; Z80.6 Family history of leukemia; Z80.49 Family history of malignant neoplasm of other genital organs; Z79.899 Other long term (current) drug therapy; Z79.82 Long term (current) use of aspirin; Z79.2 Long term (current) use of antibiotics; Z87.891 Personal history of nicotine dependence; Z66 Do not resuscitate
CPT/HCPCS: 36415; 71045; 71250; 80048; 80076; 82550; 82553; 83735; 83880; 84145; 84484; 85025; 85027; 87040; 93005; 93041; 94760; 96365; 96366; 96367; 96372; 96376; 97161; 99285; G0378; J0696; J1650; J1940